=== PATIENT | female | born 1930 | race Caucasian/White ===

== ENCOUNTER 2017-03-29 19:44 | Inpatient (IN) | payer MEDICARE, BC ==
[~2017-03-29] VITALS: Ht 147.3 cm; Wt 54.9 kg
[2017-03-29 21:40] VITALS: BP 131/61
[2017-03-29] MEDS ORDERED: ACET325T9 PO (22:24)
[2017-03-29] MEDS ORDERED: CHOL10003 PO (22:25)
[2017-03-29] MEDS ORDERED: CRAN500C6 PO (22:26)
[2017-03-29] MEDS ORDERED: ESTR42.53 VG (22:27)
[2017-03-29] MEDS ORDERED: HYDR15CR20 TP (22:28)
[2017-03-29] MEDS ORDERED: LACT1CAP6 PO (22:29)
[2017-03-29] MEDS ORDERED: LEVO100T5 PO (22:30)
[2017-03-29] MEDS ORDERED: MAGN400O7 PO (22:30)
[2017-03-29] MEDS ORDERED: MEMA28CA PO (22:31)
[2017-03-29] MEDS ORDERED: NITR50CA11 PO (22:32)
[2017-03-29] MEDS ORDERED: POTA20TA82 PO (22:33)
[2017-03-29] MEDS ORDERED: VENL37.5 PO (22:34)
[2017-03-29] MEDS ORDERED: MORPHINE SULFATE 4 MG/ML DISP.SYRIN. IV PRN (22:45)
[2017-03-29 23:00] VITALS: BP 134/57
--- NOTE | 2017-03-29 23:14 | PDOC1 ---
History and Physical Date of Admission Date of Admission DATE: 03/29/17 TIME: 23:06 Identification/Chief Complaint Chief Complaint hip pain, s/p fall Problems: Source Source: Chart review, Patient History of Present Illness History of Present Illness pt fell today at assisted living, and was brought to [facility], Left leg guarding and in pain, unable to quanitfy, but left leg externally rotated to abnormal degree. pt unable to transfer, acute pain with movement Dementia is noted, pt unaware of year or location she is oriented to self. Her daughter came w. EMS from [place], and could provide consent, and assisted with history, she reported that the left femur was reported as "crushed" by the ER physician, and this was not relayed to me, I had the implication of a clean fracture. Past Medical History Cardiovascular: HTN CENTRAL NERVOUS SYSTEM: Dementia Psych: Depression Rheumatologic: No pertinent hx Infectious disease: No pertinent hx ENT: No pertinent hx Renal/: No pertinent hx Endocrine: Hypothyroidism Dermatology: No pertinent hx Past Surgical History Past Surgical History: No pertinent history Family History Family History: No Significant Social History Smoke: No ALCOHOL: none Drugs: None Current Medications Current Medications Current Medications Sodium Chloride 1,000 ml @ 75 mls/hr [id number] IV ; Start 03/29/17 at 22:45 Oxycodone/ Acetaminophen (Percocet 5/325) 1 tab PRN Q4HRS PRN PO PAIN; Start at 22:45 Morphine Sulfate 4 mg PRN Q2HR PRN IV PAIN; Start 03/29/17 at 22:45 Active Scripts Active Reported Effexor Xr (Venlafaxine Hcl) 37.5 Mg Cap.er.24h 1 Cap PO BID Potassium Chloride 20 Meq Tablet.er 20 Meq PO BID Macrodantin (Nitrofurantoin Macrocrystal) 50 Mg Capsule 1 Cap PO HS Namenda Xr (Memantine Hcl) 28 Mg Cap.spr.24 28 Mg PO DAILY Milk Of Magnesia (Magnesium Hydroxide) 400 Mg/5 Ml Oral.susp 400 Mg PO PRN Levothyroxine Sodium 100 Mcg Tablet 1 Tab PO DAILY Probiotic (Lactobacillus Acidophilus) 1 Each Capsule 1 Each PO TID Hydrocortisone Valerate 15 Gm Cream..g. TP BID Estrace (Estradiol) 42.5 Gm Cream.appl 1 Gm VG WEEKLY Cranberry (Cranberry Extract) 500 Mg Capsule 500 Mg PO DAILY Vitamin D3 (Cholecalciferol (Vitamin D3)) 1,000 Unit Tablet 1,000 Unit PO DAILY Tylenol (Acetaminophen) 325 Mg Tablet 1 Tab PO PRN Q4HRS Allergies Allergies: Uncoded Allergies: PCN (Allergy, Unknown, Unknown, 03/29/17) ROS Review of System unable to complete due to dementia, pt had been in normal state of health per family, no recent illness or change until fall today Physical Exam General: Alert, Cooperative, No acute distress, Other (disoriented, ) HEENT: Atraumatic, EOMI Lungs: Clear to auscultation Heart: no murmurs Abdomen: Normal bowel sounds, Soft Rectal Exam: not examined Extremities: No clubbing, Normal pulses, Other (externally rotated left leg to hip, patella nearly 90 degrees abducted) Skin: No significant lesion Neuro: Normal speech, Normal tone, Sensation intact Psych/Mental Status: Mood NL Vitals Vitals Vital Signs Date Time Temp Pulse Resp B/P (MAP) Pulse Ox O2 Delivery O2 Flow Rate FiO2 03/29/17 21:40 97.9 77 24 131/61 (84) 93 Nasal Cannula 2.0 97.9 VTE Prophylaxis Ordered VTE Prophylaxis Devices: Yes VTE Pharmacological Prophylaxi: Contraindicated Assessment/Plan Assessment/Plan admit for left hip fracture Xrays taken there, disk brought with family, will try to load for Ortho eval ortho eval for fixation or nail if possible check vit D level dementia, stable cont depression med on chronic potassium replacement, check labs in AM EVA ROSSI MD Mar 29, 2017 23:14
[2017-03-29] MEDS ORDERED: MAGNESIUM HYDROXIDE 2,400 MG/30 ML ORAL.SUSP. PO PRN (23:15)
[2017-03-29] MEDS ORDERED: ACETAMINOPHEN 325 MG TABLET. PO PRN (23:15)
[2017-03-29] MEDS: oxyCODONE/APAP 5/325 1 TAB TABLET PO PRN (23:35)
[2017-03-29] MEDS: VENLAFAXINE XR 37.5 MG CAP.ER.24H. PO SCH (23:53)
[2017-03-30] VITALS (9 sets, daily range): BP systolic 94–136; BP diastolic 48–71
[2017-03-30] MEDS: IV NORMAL SALINE 1000ML BAG 1,000 ML IV SCH ×2 (00:07→12:05)
[2017-03-30] MEDS ORDERED: PNEUMOCOCCAL VAX SCREEN BY RX. MC ONE (02:15)
--- NOTE | 2017-03-30 02:24 | ACF ---
Admission Forms Criteria MUSCULOSKELETAL DISEASE GRG Clinical Indications for Admission to Inpatient Care (Place 'X' for any and all applicable criteria): Hospital admission is needed for appropriate care of the patient because of 1 or more of the following: [X]I. Fracture, dislocation, or other musculoskeletal injury requiring inpatient care(medical) as indicated by 1 or more of the following(4)(5)(6)(7) [ ]a) Vertebral fracture requiring observation for instability or neurologic compromise (8) [ ]b) Compartment syndrome (proven or cannot be ruled out during observation level of care) (9) [ ]c) Limb-threatening injury [ ]d) Major injury requiring inpatient stabilization such as traction initiation or external fixation before internal fixation or closure of complex or open fracture [X]e) Major injury requiring inpatient treatment after emergency or observation level care (as appropriate) [ ]f) Severe pain requiring acute inpatient management [ ]g) Injury with suspicion of abuse or neglect (eg., child, dependent elderly) [ ]II. Newly diagnosed or suspected bone, joint, or orthopedic device infection (e.g., osteomyelitis, septic arthritis) needing 1 or more of the following(1)(2)(3) [ ]a) IV antibiotics that cannot be initiated in other than inpatient setting (e.g., patient too unstable or home infusion not available) [ ]b) Device removal or replacement [ ]c) Bone or soft tissue debridement [ ]d) Joint drainage (drain placement or repetitive aspirations) [ ]III. Severe rheumatologic disease (e.g., systemic lupus erythematosus, rheumatoid arthritis) with complications or comorbidities (Also use Optimal Recovery Care Criteria or General Recovery Criteria as appropriate on the basis of predominant condition), including 1 or more of the following( 10)(11)(12)(13) [ ]a) Severe infection (e.g., AEROPHYSICIST infection, sepsis) (14) [ ]b) Respiratory complications, including 1 or more of the following : [ ]i) Pleural effusion with respiratory compromise [ ]ii) Pulmonary hypertension with congestive failure [ ]iii) Respiratory failure [ ]iv) Pulmonary hemorrhage (15) [ ]c) Hematologic disease, including 1 or more of the following: [ ]i) Coagulopathy with bleeding [ ]ii) Thrombosis with hypercoagulable state [ ]iii) Thrombotic thrombocytopenic purpura [ ]d) Cerebritis with seizures, psychosis, or other severe abnormalities [ ]e) Vertebral destruction with monitoring needed for cervical myelopathy& possible respiratory compromise [ ]f) Exacerbation that requires inpatient treatment (e.g., intravenous immunosuppression) (16) [ ]g) Acute renal failure [ ]h) Cerebritis with seizures, psychosis, Altered mental status, or other neurologic abnormalities [ ]i) Pericardial effusion with tamponade [ ]j) Vertebral destruction, with monitoring needed for cervical myelopathy and possible respiratory compromise [ ]IV. Severe vasculitis with complications or comorbidities (Also use Optimal Recovery Care Criteria General Recovery Criteria as appropriate on the basis of predominant condition), including 1 or more of the following(11)(12)(17)(18)(19)(20) [ ]a) Exacerbation that requires inpatient treatment (e.g., intravenous immunosuppression) (19)(21) [ ]b) Pulmonary hemorrhage (15) [ ]c) AEROPHYSICIST vasculitis with seizures, psychosis, Altered mental status that is severe or persistent, or other severe abnormalities (22) [ ]d) Cerebral infarction [ ]e) Gastrointestinal ischemia [ ]f) Gangrene or threatened amputation [ ]g) Renal failure (16) [ ]h) Other significant complications of vasculitis ( eg., tissue or organ ischemia, organ dysfunction ) [ ]V. Severe myopathy as indicated by 1 or more of the following (28)(29) [ ]a) New onset of airway compromise or inability to swallow [ ]b) Respiratory deterioration with observation needed for impending respiratory failure [ ]c) Exacerbation that requires inpatient treatment (e.g., intravenous immunosuppression) [ ]. Severe crystal gout (arthropathy) indicated by 1 or more of the following (23)(24) [ ]a) Severe pain requiring acute inpatient management [ ]b) Exacerbation that requires inpatient treatment (e.g., intravenous treatment) [ ]VII.Rhabdomyolysis and 1 or more of the following (25)(26)(27) [ ]a) Acute renal failure [ ]b) Need for intravenous hydration after emergency or observation level care (as appropriate) [ ]c) Inability to maintain oral hydration [ ]d) Change in mental status [ ]e) Electrolyte abnormality that remains after emergency or observation level care (as appropriate) [ ]VIII Post amputation complication, as indicated by ANY ONE of the following [ ]a) Infection [ ]b) Dehiscence [ ]c) Myodesis failure [ ]IX. Severe pain requiring acute inpatient management due to musculoskeletal condition [ ]X. Musculoskeletal Disease and ALL of the following: [ ]a) Symptom or finding for which emergency and observation care have failed or are not considered appropriate (Use General Criteria: Observation Care as appropriate) [ ]b) Presence of ANY ONE of the following [ ]i) A General Admission Criteria [ ]ii) A Pediatric General Admission Criteria The original [facility] [employer] content created by [facility] has been revised. The portions of the content which have been revised are identified through the use of italic text or in bold, and [facility] has neither reviewed nor approved the modified material. All other unmodified content is copyright [facility]. Please see references footnoted in the original [facility] edition 2016 Admission Criteria Met?: Yes ASHLEE SANTIAGO Mar 30, 2017 02:24
[2017-03-30 04:15] LABS: BILIRUBIN,URINE NEGATIVE (NEG); GLUCOSE,URINE NEGATIVE (NEG); NITRITE,URINE NEGATIVE (NEG); PROTEIN,URINE NEGATIVE (NEG-TRACE); UROBILINOGEN,URINE 0.2 mg/dL (0.2 mg/dL)
[2017-03-30 04:19] LABS: BACTERIA,URINE 0 /HPF (0-FEW); RBC,URINE 0 /HPF (0-2); SQUAMOUS EPITHELIAL CELL,UR OCC /LPF; WBC,URINE OCC /HPF (0-4)
[2017-03-30 04:39] LABS: BASO # 0.1 x10^3/uL (0.0-0.2); BASO % 1 % (0-3); EOS % 0 % (0-3); HEMATOCRIT 33.7 % (36.0-47.0); HEMOGLOBIN 11.1 g/dL (12.0-15.5); LYMPH # 1.8 x10^3/uL (1.0-4.8); LYMPH % 15 % (24-48); MEAN CORPUSCULAR HEMOGLOBIN 32 pg (25-35); MEAN CORPUSCULAR HGB CONC 33 g/dL (31-37); MEAN CORPUSCULAR VOLUME 98 fL (79-100); MONO % 9 % (0-9); NEUT % 75 % (31-73); PLATELET COUNT 194 x10^3/uL (140-400); RED BLOOD COUNT 3.44 x10^6/uL (3.50-5.40); RED CELL DISTRIBUTION WIDTH 14.5 % (11.5-14.5); WHITE BLOOD COUNT 11.6 x10^3/uL (4.0-11.0)
[2017-03-30 04:47] LABS: INR 1.2 (0.8-1.1)
[2017-03-30 05:07] LABS: ALBUMIN 3.2 g/dL (3.4-5.0); CALCIUM 8.2 mg/dL (8.5-10.1); CREATININE 0.8 mg/dL (0.6-1.0); GFR 67.5; POTASSIUM 4.3 mmol/L (3.5-5.1); TOTAL BILIRUBIN 0.5 mg/dL (0.2-1.0); TOTAL PROTEIN 6.5 g/dL (6.4-8.2)
[2017-03-30] MEDS: LEVOTHYROXINE 100 MCG TABLET PO SCH (06:00)
[2017-03-30] MEDS: LACTOBACILLUS ACIDOPH & BULGAR 1 TABLET. PO SCH ×3 (07:40→20:56)
[2017-03-30] MEDS: POTASSIUM CHLORIDE 20 MEQ TABLET.ER. PO SCH ×2 (07:40→17:10)
[2017-03-30] MEDS: MEMANTINE 10 MG TABLET. PO SCH ×2 (07:40→20:56)
[2017-03-30] MEDS: VENLAFAXINE XR 37.5 MG CAP.ER.24H. PO SCH ×2 (07:40→20:56)
[2017-03-30] MEDS ORDERED: fentaNYL PF VIAL 100 MCG/2 ML VIAL IV PRN ×2 (08:45)
[2017-03-30] MEDS ORDERED: MORPHINE SULFATE 2 MG/ML DISP.SYRIN. IV PRN ×2 (08:45→15:45)
[2017-03-30] MEDS ORDERED: ONDANSETRON PF 4 MG/2 ML VIAL. IV PRN ×2 (08:45→15:45)
[2017-03-30] MEDS ORDERED: PROCHLORPERAZINE 10 MG/2 ML VIAL. IV PRN (08:45)
[2017-03-30] MEDS ORDERED: LIDOCAINE 1% 1 ML SYRINGE. ID PRN (08:45)
[2017-03-30] MEDS ORDERED: HYDROmorphone 2 MG/ML VIAL IV PRN (08:45)
[2017-03-30] MEDS ORDERED: fentaNYL PF VIAL 100 MCG/2 ML VIAL ONE (12:51)
[2017-03-30] MEDS ORDERED: PROPOFOL 20 ML IV ONE (12:54)
[2017-03-30] MEDS ORDERED: LIDOCAINE 2% PF Vial for OR 5 ML VIAL. ONE (12:54)
[2017-03-30] MEDS ORDERED: ONDANSETRON PF 4 MG/2 ML VIAL. ONE (12:54)
[2017-03-30] MEDS ORDERED: FAMOTIDINE 20 MG/2 ML VIAL ONE (12:54)
--- NOTE | 2017-03-30 13:08 | PDOC ---
PROGRESS NOTES Chief Complaint Chief Complaint Hip pain, s/p fall PMH -HTN -Dementia -Depression -Hypothyroidism History of Present Illness History of Present Illness Resting with NAD Family present Pt is comfortable Vitals Vitals Vital Signs Date Time Temp Pulse Resp B/P (MAP) Pulse Ox O2 Delivery O2 Flow Rate FiO2 03/30/17 10:49 99.3 74 22 124/63 (83) 93 Nasal Cannula 2.0 99.3 Physical Exam General: Cooperative, No acute distress, Other (disoriented, ) Heart: Regular rate, No murmurs Lungs: Clear, Other (No RRW) Abdomen: Normal bowel sounds, Soft Extremities: No clubbing, Normal pulses, Other (externally rotated left leg to hip, patella nearly 90 degrees abducted) Skin: No rashes, No significant lesion Labs LABS Laboratory Tests Test 03/30/17 04:00 03/30/17 04:20 Urine Collection Type Unknown Urine Color Yellow Urine Clarity Clear Urine pH 5.0 Urine Specific [place] >=1.030 Urine Protein Negative mg/dL (NEG-TRACE) Urine Glucose (UA) Negative mg/dL (NEG) Urine Ketones (Stick) Negative mg/dL (NEG) Urine Blood Negative (NEG) Urine Nitrite Negative (NEG) Urine Bilirubin Negative (NEG) Urine Urobilinogen Dipstick 0.2 mg/dL (0.2 mg/dL) Urine Leukocyte Esterase Negative (NEG) Urine RBC 0 /HPF (0-2) Urine WBC Occ /HPF (0-4) Urine Squamous Epithelial Cells Occ /LPF Urine Bacteria 0 /HPF (0-FEW) Urine Mucus Mod /LPF White Blood Count 11.6 x10^3/uL (4.0-11.0) Red Blood Count 3.44 x10^6/uL (3.50-5.40) Hemoglobin 11.1 g/dL (12.0-15.5) Hematocrit 33.7 % (36.0-47.0) Mean Corpuscular Volume 98 fL (79-100) Mean Corpuscular Hemoglobin 32 pg (25-35) Mean Corpuscular Hemoglobin Concent 33 g/dL (31-37) Red Cell Distribution Width 14.5 % (11.5-14.5) Platelet Count 194 x10^3/uL (140-400) Neutrophils (%) (Auto) 75 % (31-73) Lymphocytes (%) (Auto) 15 % (24-48) Monocytes (%) (Auto) 9 % (0-9) Eosinophils (%) (Auto) 0 % (0-3) Basophils (%) (Auto) 1 % (0-3) Neutrophils # (Auto) 8.7 x10^3uL (1.8-7.7) Lymphocytes # (Auto) 1.8 x10^3/uL (1.0-4.8) Monocytes # (Auto) 1.1 x10^3/uL (0.0-1.1) Eosinophils # (Auto) 0.0 x10^3/uL (0.0-0.7) Basophils # (Auto) 0.1 x10^3/uL (0.0-0.2) Prothrombin Time 14.0 SEC (11.7-14.0) Prothromb Time International Ratio 1.2 (0.8-1.1) Sodium Level 144 mmol/L (136-145) Potassium Level 4.3 mmol/L (3.5-5.1) Chloride Level 110 mmol/L (98-107) Carbon Dioxide Level 26 mmol/L (21-32) Anion Gap 8 (6-14) Blood Urea Nitrogen 30 mg/dL (7-20) Creatinine 0.8 mg/dL (0.6-1.0) Estimated GFR (Cockcroft-Gault) 67.5 BUN/Creatinine Ratio 38 (6-20) Glucose Level 135 mg/dL (70-99) Calcium Level 8.2 mg/dL (8.5-10.1) Total Bilirubin 0.5 mg/dL (0.2-1.0) Aspartate Amino Transf (AST/SGOT) 19 U/L (15-37) Alanine Aminotransferase (ALT/SGPT) 19 U/L (14-59) Alkaline Phosphatase 91 U/L (46-116) Total Protein 6.5 g/dL (6.4-8.2) Albumin 3.2 g/dL (3.4-5.0) Albumin/Globulin Ratio 1.0 (1.0-1.7) Review of Systems Review of Systems Weakness Complains of hip pain Assessment and Plan Assessmemt and Plan Hip pain, s/p fall PMH -HTN -Dementia -Depression -Hypothyroidism Plan -Awaiting surgery -Continue pain management -Consult Ortho -PT/OT post-op -FU tomorrow (03/31/17) Problems: Comment Review of Relevant I have reviewed the following items ramy (where applicable) has been applied. Labs Laboratory Tests Test 03/30/17 04:00 03/30/17 04:20 Urine Collection Type Unknown Urine Color Yellow Urine Clarity Clear Urine pH 5.0 Urine Specific [place] >=1.030 Urine Protein Negative mg/dL (NEG-TRACE) Urine Glucose (UA) Negative mg/dL (NEG) Urine Ketones (Stick) Negative mg/dL (NEG) Urine Blood Negative (NEG) Urine Nitrite Negative (NEG) Urine Bilirubin Negative (NEG) Urine Urobilinogen Dipstick 0.2 mg/dL (0.2 mg/dL) Urine Leukocyte Esterase Negative (NEG) Urine RBC 0 /HPF (0-2) Urine WBC Occ /HPF (0-4) Urine Squamous Epithelial Cells Occ /LPF Urine Bacteria 0 /HPF (0-FEW) Urine Mucus Mod /LPF White Blood Count 11.6 x10^3/uL (4.0-11.0) Red Blood Count 3.44 x10^6/uL (3.50-5.40) Hemoglobin 11.1 g/dL (12.0-15.5) Hematocrit 33.7 % (36.0-47.0) Mean Corpuscular Volume 98 fL (79-100) Mean Corpuscular Hemoglobin 32 pg (25-35) Mean Corpuscular Hemoglobin Concent 33 g/dL (31-37) Red Cell Distribution Width 14.5 % (11.5-14.5) Platelet Count 194 x10^3/uL (140-400) Neutrophils (%) (Auto) 75 % (31-73) Lymphocytes (%) (Auto) 15 % (24-48) Monocytes (%) (Auto) 9 % (0-9) Eosinophils (%) (Auto) 0 % (0-3) Basophils (%) (Auto) 1 % (0-3) Neutrophils # (Auto) 8.7 x10^3uL (1.8-7.7) Lymphocytes # (Auto) 1.8 x10^3/uL (1.0-4.8) Monocytes # (Auto) 1.1 x10^3/uL (0.0-1.1) Eosinophils # (Auto) 0.0 x10^3/uL (0.0-0.7) Basophils # (Auto) 0.1 x10^3/uL (0.0-0.2) Prothrombin Time 14.0 SEC (11.7-14.0) Prothromb Time International Ratio 1.2 (0.8-1.1) Sodium Level 144 mmol/L (136-145) Potassium Level 4.3 mmol/L (3.5-5.1) Chloride Level 110 mmol/L (98-107) Carbon Dioxide Level 26 mmol/L (21-32) Anion Gap 8 (6-14) Blood Urea Nitrogen 30 mg/dL (7-20) Creatinine 0.8 mg/dL (0.6-1.0) Estimated GFR (Cockcroft-Gault) 67.5 BUN/Creatinine Ratio 38 (6-20) Glucose Level 135 mg/dL (70-99) Calcium Level 8.2 mg/dL (8.5-10.1) Total Bilirubin 0.5 mg/dL (0.2-1.0) Aspartate Amino Transf (AST/SGOT) 19 U/L (15-37) Alanine Aminotransferase (ALT/SGPT) 19 U/L (14-59) Alkaline Phosphatase 91 U/L (46-116) Total Protein 6.5 g/dL (6.4-8.2) Albumin 3.2 g/dL (3.4-5.0) Albumin/Globulin Ratio 1.0 (1.0-1.7) Laboratory Tests Test 03/30/17 04:00 03/30/17 04:20 Urine Collection Type Unknown Urine Color Yellow Urine Clarity Clear Urine pH 5.0 Urine Specific [place] >=1.030 Urine Protein Negative mg/dL (NEG-TRACE) Urine Glucose (UA) Negative mg/dL (NEG) Urine Ketones (Stick) Negative mg/dL (NEG) Urine Blood Negative (NEG) Urine Nitrite Negative (NEG) Urine Bilirubin Negative (NEG) Urine Urobilinogen Dipstick 0.2 mg/dL (0.2 mg/dL) Urine Leukocyte Esterase Negative (NEG) Urine RBC 0 /HPF (0-2) Urine WBC Occ /HPF (0-4) Urine Squamous Epithelial Cells Occ /LPF Urine Bacteria 0 /HPF (0-FEW) Urine Mucus Mod /LPF White Blood Count 11.6 x10^3/uL (4.0-11.0) Red Blood Count 3.44 x10^6/uL (3.50-5.40) Hemoglobin 11.1 g/dL (12.0-15.5) Hematocrit 33.7 % (36.0-47.0) Mean Corpuscular Volume 98 fL (79-100) Mean Corpuscular Hemoglobin 32 pg (25-35) Mean Corpuscular Hemoglobin Concent 33 g/dL (31-37) Red Cell Distribution Width 14.5 % (11.5-14.5) Platelet Count 194 x10^3/uL (140-400) Neutrophils (%) (Auto) 75 % (31-73) Lymphocytes (%) (Auto) 15 % (24-48) Monocytes (%) (Auto) 9 % (0-9) Eosinophils (%) (Auto) 0 % (0-3) Basophils (%) (Auto) 1 % (0-3) Neutrophils # (Auto) 8.7 x10^3uL (1.8-7.7) Lymphocytes # (Auto) 1.8 x10^3/uL (1.0-4.8) Monocytes # (Auto) 1.1 x10^3/uL (0.0-1.1) Eosinophils # (Auto) 0.0 x10^3/uL (0.0-0.7) Basophils # (Auto) 0.1 x10^3/uL (0.0-0.2) Prothrombin Time 14.0 SEC (11.7-14.0) Prothromb Time International Ratio 1.2 (0.8-1.1) Sodium Level 144 mmol/L (136-145) Potassium Level 4.3 mmol/L (3.5-5.1) Chloride Level 110 mmol/L (98-107) Carbon Dioxide Level 26 mmol/L (21-32) Anion Gap 8 (6-14) Blood Urea Nitrogen 30 mg/dL (7-20) Creatinine 0.8 mg/dL (0.6-1.0) Estimated GFR (Cockcroft-Gault) 67.5 BUN/Creatinine Ratio 38 (6-20) Glucose Level 135 mg/dL (70-99) Calcium Level 8.2 mg/dL (8.5-10.1) Total Bilirubin 0.5 mg/dL (0.2-1.0) Aspartate Amino Transf (AST/SGOT) 19 U/L (15-37) Alanine Aminotransferase (ALT/SGPT) 19 U/L (14-59) Alkaline Phosphatase 91 U/L (46-116) Total Protein 6.5 g/dL (6.4-8.2) Albumin 3.2 g/dL (3.4-5.0) Albumin/Globulin Ratio 1.0 (1.0-1.7) Medications Current Medications Sodium Chloride 1,000 ml @ 75 mls/hr [id number] IV Last administered on 00:07; Start 03/29/17 at 22:45 Oxycodone/ Acetaminophen (Percocet 5/325) 1 tab PRN Q4HRS PRN PO PAIN Last administered on 03/29/17 23:35; Start 03/29/17 at 22:45 Morphine Sulfate 4 mg PRN Q2HR PRN IV PAIN Last administered on 03/30/17 07:29 ; Start 03/29/17 at 22:45 Acetaminophen (Tylenol) 325 mg PRN Q4HRS PRN PO PAIN/TEMP; Start 03/29/17 at 23 :15 Estradiol (Estrace) 1 [place] WEEKLY VG ; Start 04/05/17 at 09:00 Levothyroxine Sodium (Synthroid) 100 mcg DAILY06 PO ; Start 03/30/17 at 06:00 Magnesium Hydroxide (Milk Of Magnesia) 400 mg DAILY PRN PO CONSTIPATION; Start 03/29/17 at 23:15 Venlafaxine HCl (Effexor Xr) 37.5 mg BID PO Last administered on 03/29/17 23: 53; Start 03/29/17 at 23:45 Lactobacillus Acidophilus (Bacid, Maddison-Bid) 1 tab TID PO ; Start 03/30/17 at 09: 00 Memantine (Namenda) 10 mg BID PO ; Start 03/30/17 at 09:00 Potassium Chloride (Klor-Con) 20 meq BIDWMEALS PO ; Start 03/30/17 at 08:00 Pneumococcal Polyvalent Vaccine (Do NOT chart on this placeholder) 1 each 1X ONCE MC ; Start 03/30/17 at 02:15; Stop 03/30/17 at 02:16; Status UNV Ondansetron HCl (Zofran) 4 mg PRN Q6HRS PRN IV NAUSEA/VOMITING; Start 03/30/17 at 08:45; Stop 03/31/17 at 08:44 Fentanyl Citrate (Fentanyl 2ml Vial) 25 mcg PRN Q5MIN PRN IV MILD PAIN; Start 03/30/17 at 08:45; Stop 03/31/17 at 08:44 Fentanyl Citrate (Fentanyl 2ml Vial) 50 mcg PRN Q5MIN PRN IV MODERATE PAIN; Start 03/30/17 at 08:45; Stop 03/31/17 at 08:44 Morphine Sulfate 1 mg PRN Q10MIN PRN IV SEVERE PAIN; Start 03/30/17 at 08:45; Stop 03/31/17 at 08:44 Ringer's Solution 1,000 ml @ 30 mls/hr Q24H IV ; Start 03/30/17 at 08:41; Stop 03/30/17 at 20:40 Lidocaine HCl 2 ml PRN 1X PRN ID PRIOR TO IV START; Start 03/30/17 at 08:45; Stop 03/31/17 at 08:44 Hydromorphone HCl (Dilaudid) 0.5 mg PRN Q10MIN PRN IV SEV PAIN, Second choice; Start 03/30/17 at 08:45; Stop 03/31/17 at 08:44 Prochlorperazine Edisylate (Compazine) 5 mg PACU PRN PRN IV NAUSEA, MRX1; Start 03/30/17 at 08:45; Stop 03/31/17 at 08:44 Fentanyl Citrate (Fentanyl 2ml Vial) 100 mcg STK-MED ONCE .ROUTE ; Start at 12:51; Stop 03/30/17 at 12:52; Status DC Famotidine (Pepcid) 20 mg STK-MED ONCE .ROUTE ; Start 03/30/17 at 12:54; Stop at 12:55; Status DC Lidocaine HCl (Lidocaine Pf 2% Vial) 5 ml STK-MED ONCE .ROUTE ; Start 03/30/17 at 12:54; Stop 03/30/17 at 12:55; Status DC Ondansetron HCl (Zofran) 4 mg STK-MED ONCE .ROUTE ; Start 03/30/17 at 12:54; Stop 03/30/17 at 12:55; Status DC Propofol 20 ml @ As Directed STK-MED ONCE IV ; Start 03/30/17 at 12:54; Stop at 12:55; Status DC Active Scripts Active Reported Effexor Xr (Venlafaxine Hcl) 37.5 Mg Cap.er.24h 1 Cap PO BID Potassium Chloride 20 Meq Tablet.er 20 Meq PO BID Macrodantin (Nitrofurantoin Macrocrystal) 50 Mg Capsule 1 Cap PO HS Namenda Xr (Memantine Hcl) 28 Mg Cap.spr.24 28 Mg PO DAILY Milk Of Magnesia (Magnesium Hydroxide) 400 Mg/5 Ml Oral.susp 400 Mg PO PRN Levothyroxine Sodium 100 Mcg Tablet 1 Tab PO DAILY Probiotic (Lactobacillus Acidophilus) 1 Each Capsule 1 Each PO TID Hydrocortisone Valerate 15 Gm Cream..g. TP BID Estrace (Estradiol) 42.5 Gm Cream.appl 1 Gm VG WEEKLY Cranberry (Cranberry Extract) 500 Mg Capsule 500 Mg PO DAILY Vitamin D3 (Cholecalciferol (Vitamin D3)) 1,000 Unit Tablet 1,000 Unit PO DAILY Tylenol (Acetaminophen) 325 Mg Tablet 1 Tab PO PRN Q4HRS Vitals/I & O Vital Sign - Last 24 Hours 03/29/17 03/29/17 03/29/17 03/29/17 21:40 21:40 23:00 23:35 Temp 97.9 97.7 97.9 97.7 Pulse 77 89 Resp 24 24 B/P (MAP) 131/61 (84) 134/57 (82) Pulse Ox 93 95 93 O2 Delivery Nasal Cannula Nasal Cannula Nasal Cannula O2 Flow Rate 2.0 2.0 2.0 2.0 03/30/17 03/30/17 03/30/17 03/30/17 00:35 03:00 07:29 07:41 Temp 98.2 98.6 98.2 98.6 Pulse 79 76 Resp 22 18 22 B/P (MAP) 136/71 (92) 105/50 (68) Pulse Ox 95 95 95 O2 Delivery Nasal Cannula Nasal Cannula Nasal Cannula Room Air O2 Flow Rate 2.0 2.0 2.0 03/30/17 10:49 Temp 99.3 99.3 Pulse 74 Resp 22 B/P (MAP) 124/63 (83) Pulse Ox 93 O2 Delivery Nasal Cannula O2 Flow Rate 2.0 Intake and Output 03/29/17 03/29/17 03/30/17 15:00 23:00 07:00 Intake Total 100 ml Output Total 140 ml Balance 100 ml -140 ml KATHERINE PORRAS III DO Mar 30, 2017 13:08
[2017-03-30] MEDS: IV RINGERS,LACTATED 1000ML 1,000 ML IV SCH ×2 (13:20→15:22)
[2017-03-30] MEDS ORDERED: DEXAMETHASONE SOD PHOS 20 MG/5 ML VIAL. ONE (14:21)
[2017-03-30] MEDS ORDERED: PHENYLEPHRINE 10 MG/ML VIAL. ONE (14:21)
[2017-03-30] MEDS ORDERED: 0.9 % SODIUM CHLORIDE 50 ML VIAL. IJ ONE (14:21)
[2017-03-30] MEDS ORDERED: SEVOFLURANE 61 TO 120 MINUTES. IH ONE ×2 (14:21→14:42)
[2017-03-30] MEDS ORDERED: CLINDAMYCIN 600MG PREMIX 50 ML IV ONE (14:30)
--- NOTE | 2017-03-30 15:35 | PDOC4 ---
Operative Note Operative Note Date 03/30/2017 Pre-and postoperative diagnosis displaced intertrochanteric left hip fracture Procedure operative reduction internal fixation left intertrochanteric hip fracture with InterTAN intramedullary nail Surgeon Chelle Wakefield endotracheal Estimated blood loss 100 mL Complications none Operative indications: Patient is an 87-year-old female that had a fall in assisted living and was admitted yesterday evening after initial evaluation at [facility] with an intertrochanteric hip fracture. She underwent medical evaluation last night and I talked to her daughter who is power of security assurance specialist as well as son-in-law about the findings and possible treatments of the hip fracture including nonoperative treatment with immobility related complications and suggested operative treatment and stabilization to allow her mobilization with the possibility of infection nerve root blood vessel damage medical or other anesthetic complications including nonhealing among others. All her questions were answered consent was obtained and family agrees to proceed with operative evaluation and treatment Operative text: Patient was identified procedure verified. After adequate amounts of general endotracheal anesthesia were administered, the patient was placed on the Nida fracture table left lower extremity was placed in traction and the right leg placed in a leg parker all bony prominences were well-padded. After timeout was performed patient procedure identified and verified traction was placed in the left leg was manipulated to obtain adequate reduction under fluoroscopic guidance and the left hip was prepped and draped in standard sterile fashion. Procedure was again verified and incision was made just proximal to the greater trochanter and and entry awl was made to advance a long guidewire down the center of the femur entry drill bit was used and reaming carried out up to a size 13. An 11 one half 130 InterTAN nail was then placed a guidewire was placed up the center of the femoral neck under fluoroscopic guidance and drilling was carried out for the lag and compression screws. Measurement carried out and a size 90 mm and a size 80 mm lag screw was used to achieve adequate compression. Excellent compression was obtained and rotation well-controlled. Fracture appeared to be stably fixated under multiple fluoroscopic views with excellent positioning of the lag screw in the center of the femoral head. Distal locking screw was placed to prevent any rotation and again all hardware placement and reduction was checked under multiple fluoroscopic views thorough irrigation carried out normal saline solution fascia was closed with #1 Vicryl suture subcutaneous closure with buried Vicryl skin closure with yobani sterile dressings were applied patient was extirpated transferred to postop holding in stable condition having tolerated the procedure well DARINEL WU MD Mar 30, 2017 15:35
[2017-03-30] MEDS ORDERED: MORPHINE SULFATE 4 MG/ML DISP.SYRIN. IV PRN (15:45)
[2017-03-30] MEDS ORDERED: HYDROcodone/APAP 7.5/325MG 1 TAB TABLET PO PRN (15:45)
[2017-03-30] MEDS ORDERED: DEXTROSE 50% 25 GM / 50ML DISP.SYRIN. IV PRN (15:45)
[2017-03-30] MEDS ORDERED: POLYETHYLENE GLYCOL 3350 17 GM PACKET. PO PRN (15:45)
[2017-03-30] MEDS ORDERED: oxyCODONE IR 5 MG TABLET PO PRN (15:45)
[2017-03-30] MEDS ORDERED: WARFARIN 7.5 MG TABLET. PO ONE (16:00)
[2017-03-30] MEDS: SENNOSIDES/DOCUSATE 8.6/50MG TABLET. PO SCH (17:10)
[2017-03-30] MEDS: CLINDAMYCIN 600MG PREMIX 50 ML IV SCH (18:07)
[2017-03-30] MEDS: oxyCODONE/APAP 5/325 1 TAB TABLET PO PRN (20:57)
[2017-03-31] MEDS: IV NORMAL SALINE 1000ML BAG 1,000 ML IV SCH ×2 (01:25→14:07)
[2017-03-31] MEDS: CLINDAMYCIN 600MG PREMIX 50 ML IV SCH ×2 (01:37→10:46)
[2017-03-31 03:00] VITALS: BP 94/50
--- NOTE | 2017-03-31 04:03 | CONS ---
DATE OF CONSULTATION: 03/30/2017 REQUESTING PHYSICIAN: Dr. Annette Gallegos. REASON FOR CONSULTATION: Left hip fracture. HISTORY OF PRESENT ILLNESS: The patient is an 87-year-old female that is in assisted living, has some mild dementia, unable to bear weight on her left leg and has pain with any hip motion. She was originally brought to [facility] and transferred to [place] for further care. She is accompanied by her daughter and son-in-law. PAST MEDICAL HISTORY: Significant for dementia, hypertension and depression as well as hypothyroidism. PAST SURGICAL HISTORY: Significant for ORIF of a right hip fracture several years ago at [facility] in [place]. FAMILY HISTORY: She denies any significant family history. SOCIAL HISTORY: She is now out in this area to be near to her family and is in an assisted living facility. Denies smoking, alcohol or drug use. MEDICATIONS: List is reviewed. ALLERGIES: INCLUDE PENICILLIN. REVIEW OF SYSTEMS: Really unobtainable due to her mental status. She is alert to self, not really place or time, was previously ambulatory with a walker until the fall and otherwise in a normal state of health according to her family members. PHYSICAL EXAMINATION: GENERAL: This is a pleasant, cooperative 87-year-old female, afebrile, alert, oriented only to self. HEENT: Atraumatic, normocephalic. EXTREMITIES: Moving upper extremities spontaneously. Left hip is shortened, externally rotated and has pain with any range of motion. She has normal alignment, stability of the right hip that has a well-healed incision from previous fixation of the hip fracture as well as good alignment of bilateral knees and ankles. IMAGING: X-rays of the left hip show a displaced, comminuted intertrochanteric left hip fracture. IMPRESSION: Left intertrochanteric hip fracture. TREATMENT PLAN: I talked with the patient, but really more her family and specifically her daughter, who is the power of trade mark attorney about the treatment options, risks, benefits, postoperative course of the usual hip fixation, the less desirable nonoperative treatment options due to immobility related complications. We talked about the possible complications of surgical treatment of medical or other anesthetic complications, bleeding, infection, possible nonhealing, nerve or blood vessel damage among others. All their questions were answered. Consent was obtained and the daughter, power of trade mark attorney agrees to proceed with surgical evaluation and treatment, which will be planned today. DARINEL WU MD DR: SARY/iban JOB#: [id number] / [id number]
[2017-03-31] MEDS ORDERED: MAGNESIUM HYDROXIDE 2,400 MG/30 ML ORAL.SUSP. PO PRN (06:00)
[2017-03-31] MEDS: LEVOTHYROXINE 100 MCG TABLET PO SCH (06:32)
[2017-03-31 07:00] VITALS: BP 101/46
[2017-03-31] MEDS ORDERED: ALBUTEROL SULFATE 2.5 MG/3 ML NEBU. NEB PRN (08:45)
[2017-03-31] MEDS: VENLAFAXINE XR 37.5 MG CAP.ER.24H. PO SCH ×2 (10:47→21:12)
[2017-03-31] MEDS: POTASSIUM CHLORIDE 20 MEQ TABLET.ER. PO SCH ×2 (10:47→17:03)
[2017-03-31] MEDS: oxyCODONE/APAP 5/325 1 TAB TABLET PO PRN ×2 (10:48→19:42)
[2017-03-31] MEDS: MEMANTINE 10 MG TABLET. PO SCH ×2 (10:48→21:12)
[2017-03-31] MEDS: SENNOSIDES/DOCUSATE 8.6/50MG TABLET. PO SCH (10:49)
[2017-03-31] MEDS: LACTOBACILLUS ACIDOPH & BULGAR 1 TABLET. PO SCH ×3 (10:49→21:12)
[2017-03-31] MEDS: fentaNYL PF VIAL 100 MCG/2 ML VIAL IV PRN ×2 (10:50→21:14)
[2017-03-31 11:00] VITALS: BP 108/34
--- NOTE | 2017-03-31 11:01 | PDOC ---
PROGRESS NOTES Chief Complaint Chief Complaint left hip fx s/p sx (03/30) POD # 1 Assisted LIving resident Dementia, mild vs cognitive impairment HArd of hearing Fevers POD #1, likely atelectasis PMH -HTN -Dementia -Depression -Hypothyroidism History of Present Illness History of Present Illness Up in chair after PT worked with her today, very minimal pain Tmax 100 NO cough UA is clean Dw family at beside- IS at least 10x- NO spirometry at bedside LAbs: WBC 11, hgb 11 - expected IF fevers persist then will further investigate, cxr etc HOld off antibiotics for now Dw RN Gisela Moody consult [facility]- lives in [place] Vitals Vitals Vital Signs Date Time Temp Pulse Resp B/P (MAP) Pulse Ox O2 Delivery O2 Flow Rate FiO2 03/31/17 10:50 18 Nasal Cannula 2.0 03/31/17 07:00 98.1 88 101/46 (64) 96 98.1 Physical Exam General: Cooperative, No acute distress, Other (disoriented, ) Heart: Regular rate, No murmurs Lungs: Clear, Other (No RRW) Abdomen: Normal bowel sounds, Soft Extremities: No clubbing, Normal pulses, Other (externally rotated left leg to hip, patella nearly 90 degrees abducted) Skin: No rashes, No significant lesion Review of Systems Review of Systems denies 14 pt - has dementia/cognitive impairment Comment Review of Relevant I have reviewed the following items ramy (where applicable) has been applied. Labs Laboratory Tests Test 03/30/17 04:00 03/30/17 04:20 Urine Collection Type Unknown Urine Color Yellow Urine Clarity Clear Urine pH 5.0 Urine Specific [place] >=1.030 Urine Protein Negative mg/dL (NEG-TRACE) Urine Glucose (UA) Negative mg/dL (NEG) Urine Ketones (Stick) Negative mg/dL (NEG) Urine Blood Negative (NEG) Urine Nitrite Negative (NEG) Urine Bilirubin Negative (NEG) Urine Urobilinogen Dipstick 0.2 mg/dL (0.2 mg/dL) Urine Leukocyte Esterase Negative (NEG) Urine RBC 0 /HPF (0-2) Urine WBC Occ /HPF (0-4) Urine Squamous Epithelial Cells Occ /LPF Urine Bacteria 0 /HPF (0-FEW) Urine Mucus Mod /LPF Nasal Screen MRSA (PCR) Negative (Negative) White Blood Count 11.6 x10^3/uL (4.0-11.0) Red Blood Count 3.44 x10^6/uL (3.50-5.40) Hemoglobin 11.1 g/dL (12.0-15.5) Hematocrit 33.7 % (36.0-47.0) Mean Corpuscular Volume 98 fL (79-100) Mean Corpuscular Hemoglobin 32 pg (25-35) Mean Corpuscular Hemoglobin Concent 33 g/dL (31-37) Red Cell Distribution Width 14.5 % (11.5-14.5) Platelet Count 194 x10^3/uL (140-400) Neutrophils (%) (Auto) 75 % (31-73) Lymphocytes (%) (Auto) 15 % (24-48) Monocytes (%) (Auto) 9 % (0-9) Eosinophils (%) (Auto) 0 % (0-3) Basophils (%) (Auto) 1 % (0-3) Neutrophils # (Auto) 8.7 x10^3uL (1.8-7.7) Lymphocytes # (Auto) 1.8 x10^3/uL (1.0-4.8) Monocytes # (Auto) 1.1 x10^3/uL (0.0-1.1) Eosinophils # (Auto) 0.0 x10^3/uL (0.0-0.7) Basophils # (Auto) 0.1 x10^3/uL (0.0-0.2) Prothrombin Time 14.0 SEC (11.7-14.0) Prothromb Time International Ratio 1.2 (0.8-1.1) Sodium Level 144 mmol/L (136-145) Potassium Level 4.3 mmol/L (3.5-5.1) Chloride Level 110 mmol/L (98-107) Carbon Dioxide Level 26 mmol/L (21-32) Anion Gap 8 (6-14) Blood Urea Nitrogen 30 mg/dL (7-20) Creatinine 0.8 mg/dL (0.6-1.0) Estimated GFR (Cockcroft-Gault) 67.5 BUN/Creatinine Ratio 38 (6-20) Glucose Level 135 mg/dL (70-99) Calcium Level 8.2 mg/dL (8.5-10.1) Total Bilirubin 0.5 mg/dL (0.2-1.0) Aspartate Amino Transf (AST/SGOT) 19 U/L (15-37) Alanine Aminotransferase (ALT/SGPT) 19 U/L (14-59) Alkaline Phosphatase 91 U/L (46-116) Total Protein 6.5 g/dL (6.4-8.2) Albumin 3.2 g/dL (3.4-5.0) Albumin/Globulin Ratio 1.0 (1.0-1.7) Medications Current Medications Sodium Chloride 1,000 ml @ 75 mls/hr [id number] IV Last administered on 12:05; Start 03/29/17 at 22:45 Oxycodone/ Acetaminophen (Percocet 5/325) 1 tab PRN Q4HRS PRN PO PAIN Last administered on 03/31/17 10:48; Start 03/29/17 at 22:45 Morphine Sulfate 4 mg PRN Q2HR PRN IV PAIN Last administered on 03/30/17 07:29 ; Start 03/29/17 at 22:45 Acetaminophen (Tylenol) 325 mg PRN Q4HRS PRN PO PAIN/TEMP; Start 03/29/17 at 23 :15 Estradiol (Estrace) 1 [place] WEEKLY VG ; Start 04/05/17 at 09:00 Levothyroxine Sodium (Synthroid) 100 mcg DAILY06 PO Last administered on 06:32; Start 03/30/17 at 06:00 Magnesium Hydroxide (Milk Of Magnesia) 400 mg DAILY PRN PO CONSTIPATION; Start 03/29/17 at 23:15 Venlafaxine HCl (Effexor Xr) 37.5 mg BID PO Last administered on 03/31/17 10: 47; Start 03/29/17 at 23:45 Lactobacillus Acidophilus (Bacid, Maddison-Bid) 1 tab TID PO Last administered on 10:49; Start 03/30/17 at 09:00 Memantine (Namenda) 10 mg BID PO Last administered on 03/31/17 10:48; Start at 09:00 Potassium Chloride (Klor-Con) 20 meq BIDWMEALS PO Last administered on 10:47; Start 03/30/17 at 08:00 Pneumococcal Polyvalent Vaccine (Do NOT chart on this placeholder) 1 each 1X ONCE MC ; Start 03/30/17 at 02:15; Stop 03/30/17 at 02:16; Status UNV Ondansetron HCl (Zofran) 4 mg PRN Q6HRS PRN IV NAUSEA/VOMITING; Start 03/30/17 at 08:45; Stop 03/31/17 at 08:44; Status DC Fentanyl Citrate (Fentanyl 2ml Vial) 25 mcg PRN Q5MIN PRN IV MILD PAIN; Start 03/30/17 at 08:45; Stop 03/31/17 at 08:44; Status DC Fentanyl Citrate (Fentanyl 2ml Vial) 50 mcg PRN Q5MIN PRN IV MODERATE PAIN; Start 03/30/17 at 08:45; Stop 03/31/17 at 08:44; Status DC Morphine Sulfate 1 mg PRN Q10MIN PRN IV SEVERE PAIN; Start 03/30/17 at 08:45; Stop 03/31/17 at 08:44; Status DC Ringer's Solution 1,000 ml @ 30 mls/hr Q24H IV Last administered on 03/30/17t 15:22; Start 03/30/17 at 08:41; Stop 03/30/17 at 20:40; Status DC Lidocaine HCl 2 ml PRN 1X PRN ID PRIOR TO IV START; Start 03/30/17 at 08:45; Stop 03/31/17 at 08:44; Status DC Hydromorphone HCl (Dilaudid) 0.5 mg PRN Q10MIN PRN IV SEV PAIN, Second choice; Start 03/30/17 at 08:45; Stop 03/31/17 at 08:44; Status DC Prochlorperazine Edisylate (Compazine) 5 mg PACU PRN PRN IV NAUSEA, MRX1; Start 03/30/17 at 08:45; Stop 03/31/17 at 08:44; Status DC Fentanyl Citrate (Fentanyl 2ml Vial) 100 mcg STK-MED ONCE .ROUTE ; Start at 12:51; Stop 03/30/17 at 12:52; Status DC Famotidine (Pepcid) 20 mg STK-MED ONCE .ROUTE ; Start 03/30/17 at 12:54; Stop at 12:55; Status DC Lidocaine HCl (Lidocaine Pf 2% Vial) 5 ml STK-MED ONCE .ROUTE ; Start 03/30/17 at 12:54; Stop 03/30/17 at 12:55; Status DC Ondansetron HCl (Zofran) 4 mg STK-MED ONCE .ROUTE ; Start 03/30/17 at 12:54; Stop 03/30/17 at 12:55; Status DC Propofol 20 ml @ As Directed STK-MED ONCE IV ; Start 03/30/17 at 12:54; Stop at 12:55; Status DC Clindamycin Phosphate 50 ml @ 100 mls/hr 1X ONCE IV Last administered on 03/30t 13:56; Start 03/30/17 at 14:30; Stop 03/30/17 at 14:59; Status DC Sodium Chloride (Sodium Chloride) 50 ml STK-MED ONCE IJ ; Start 03/30/17 at 14: 21; Stop 03/30/17 at 14:22; Status DC Phenylephrine HCl (Fermín-Synephrine Inj) 10 mg STK-MED ONCE .ROUTE ; Start at 14:21; Stop 03/30/17 at 14:22; Status DC Sevoflurane (Ultane) 60 ml STK-MED ONCE IH ; Start 03/30/17 at 14:21; Stop 03/30 at 14:22; Status DC Dexamethasone Sodium Phosphate (Decadron) 20 mg STK-MED ONCE .ROUTE ; Start at 14:21; Stop 03/30/17 at 14:22; Status DC Sevoflurane (Ultane) 60 ml STK-MED ONCE IH ; Start 03/30/17 at 14:42; Stop 03/30 at 14:43; Status DC Oxycodone HCl (Roxicodone) 5 mg PRN Q3HRS PRN PO PAIN; Start 03/30/17 at 15:45 Morphine Sulfate 2 mg PRN Q1HR PRN IV PAIN; Start 03/30/17 at 15:45 Fentanyl Citrate (Fentanyl 2ml Vial) 25 mcg PRN Q1HR PRN IV PAIN Last administered on 03/31/17t 10:50; Start 03/30/17 at 15:45 Senna/Docusate Sodium (Senna Plus) 1 tab DAILY PO Last administered on 10:49; Start 03/30/17 at 16:00 Polyethylene Glycol (miraLAX PACKET) 17 gm PRN DAILY PRN PO CONSTIPATION; Start 03/30/17 at 15:45 Clindamycin Phosphate 50 ml @ 100 mls/hr Q6H IV Last administered on 10:46; Start 03/30/17 at 20:00; Stop 03/31/17 at 08:29; Status DC Ondansetron HCl (Zofran) 4 mg PRN Q4HRS PRN IV NAUSEA/VOMITING; Start 03/30/17 at 15:45 Warfarin Sodium (Coumadin) 7.5 mg 1X ONCE PO Last administered on 03/30/17 17 :11; Start 03/30/17 at 16:00; Stop 03/30/17 at 16:01; Status DC Warfarin Sodium (Coumadin Per Pharmacy) 1 each PRN DAILY PRN MC SEE COMMENTS; Start 03/31/17 at 15:45 Magnesium Hydroxide (Milk Of Magnesia) 2,400 mg 1X PRN PRN PO CONSTIPATION; Start 03/31/17 at 06:00; Stop 04/01/17 at 05:59 Bisacodyl (Dulcolax Supp) 10 mg 1X PRN PRN [place] CONSTIPATION; Start 03/31/17 at 16:00; Stop 04/01/17 at 15:59 Acetaminophen/ Hydrocodone Bitart (Lortab 7.5/325) 1 tab PRN Q4HRS PRN PO PAIN ; Start 03/30/17 at 15:45 Morphine Sulfate 4 mg PRN Q2HR PRN IV PAIN; Start 03/30/17 at 15:45 Acetaminophen/ Hydrocodone Bitart (Lortab 7.5/325) 2 tab PRN Q4HRS PRN PO PAIN ; Start 03/30/17 at 15:45 Dextrose (Dextrose 50%-Water Syringe) 12.5 gm PRN Q15MIN PRN IV SEE COMMENTS; Start 03/30/17 at 15:45 Acetaminophen (Tylenol) 650 mg PRN Q6HRS PRN PO fever; Start 03/31/17 at 08:45 Albuterol Sulfate (Ventolin Neb Soln) 2.5 mg PRN Q4HRS PRN NEB SHORTNESS OF BREATH; Start 03/31/17 at 08:45 Active Scripts Active Reported Effexor Xr (Venlafaxine Hcl) 37.5 Mg Cap.er.24h 1 Cap PO BID Potassium Chloride 20 Meq Tablet.er 20 Meq PO BID Macrodantin (Nitrofurantoin Macrocrystal) 50 Mg Capsule 1 Cap PO HS Namenda Xr (Memantine Hcl) 28 Mg Cap.spr.24 28 Mg PO DAILY Milk Of Magnesia (Magnesium Hydroxide) 400 Mg/5 Ml Oral.susp 400 Mg PO PRN Levothyroxine Sodium 100 Mcg Tablet 1 Tab PO DAILY Probiotic (Lactobacillus Acidophilus) 1 Each Capsule 1 Each PO TID Hydrocortisone Valerate 15 Gm Cream..g. TP BID Estrace (Estradiol) 42.5 Gm Cream.appl 1 Gm VG WEEKLY Cranberry (Cranberry Extract) 500 Mg Capsule 500 Mg PO DAILY Vitamin D3 (Cholecalciferol (Vitamin D3)) 1,000 Unit Tablet 1,000 Unit PO DAILY Tylenol (Acetaminophen) 325 Mg Tablet 1 Tab PO PRN Q4HRS Vitals/I & O Vital Sign - Last 24 Hours 03/30/17 03/30/17 03/30/17 03/30/17 13:20 14:52 14:52 15:07 Temp 98.5 97.4 98.5 97.4 Pulse 72 80 80 Resp 15 20 20 B/P (MAP) 135/56 121/53 109/61 Pulse Ox 92 97 100 O2 Delivery Nasal Cannula Mask Simple Mask Simple Mask O2 Flow Rate 2.0 10 10 10 03/30/17 03/30/17 03/30/17 03/30/17 15:22 15:37 16:00 16:15 Pulse 78 78 84 Resp 20 20 18 B/P (MAP) 105/54 117/55 112/54 (73) 117/56 (76) Pulse Ox 100 78 91 O2 Delivery Simple Mask Nasal Cannula Nasal Cannula O2 Flow Rate 10 2 3.0 03/30/17 03/30/17 03/30/17 03/30/17 16:30 16:45 17:30 20:05 Pulse 89 86 80 Resp 14 16 B/P (MAP) 121/53 (75) 120/53 (75) 111/57 (75) Pulse Ox 86 93 98 O2 Delivery Nasal Cannula Nasal Cannula Nasal Cannula Nasal Cannula O2 Flow Rate 3.0 3.0 3.0 4.0 703/30/17 03/30/17 03/31/17 20:57 22:00 23:00 03:00 Temp 100.0 99.9 100.0 99.9 Pulse 98 84 Resp 18 18 B/P (MAP) 94/48 (63) 94/50 (65) Pulse Ox 98 97 97 O2 Delivery Nasal Cannula Nasal Cannula Nasal Cannula Nasal Cannula O2 Flow Rate 4.0 4.0 4.0 4.0 03/31/17 03/31/17 03/31/17 07:00 10:48 10:50 Temp 98.1 98.1 Pulse 88 Resp 16 18 18 B/P (MAP) 101/46 (64) Pulse Ox 96 O2 Delivery Room Air Nasal Cannula Nasal Cannula O2 Flow Rate 2.0 2.0 Intake and Output 03/30/17 03/30/17 03/31/17 15:00 23:00 07:00 Intake Total 1000 ml 360 ml 1470 ml Output Total 100 ml 0 ml 275 ml Balance 900 ml 360 ml 1195 ml NATALEE DOYLE MD Mar 31, 2017 11:01
[2017-03-31 15:00] VITALS: BP 101/42
[2017-03-31 15:26] LABS: INR 1.6 (0.8-1.1); PROTHROMBIN TIME PATIENT 18.3 SEC (11.7-14.0)
[2017-03-31 15:38] LABS: HEMATOCRIT 23.3 % (36.0-47.0); HEMOGLOBIN 7.8 g/dL (12.0-15.5)
[2017-03-31] MEDS ORDERED: BRIM5DRO2 OP (15:45)
[2017-03-31] MEDS ORDERED: MINE15DR2 OP (15:45)
[2017-03-31] MEDS ORDERED: LATA2.5D3 OP (15:45)
[2017-03-31] MEDS ORDERED: BISACODYL 10 MG SUPP.RECT. PR PRN (16:00)
[2017-03-31] MEDS ORDERED: WARFARIN 3 MG TABLET. PO ONE (16:00)
[2017-03-31] MEDS: SOOTHE XP OU SCH ×2 (17:03→21:13)
[2017-03-31 19:00] VITALS: BP 123/52
[2017-03-31] MEDS: LATANOPROST 0.005% OPHTH SOLUTION 2.5ML BOTTLE. OD SCH (21:12)
[2017-03-31] MEDS: COMBIGAN OD SCH (21:13)
[2017-03-31 23:00] VITALS: BP 87/39
[2017-04-01] MEDS: IV NORMAL SALINE 1000ML BAG 1,000 ML IV SCH ×2 (02:55→16:23)
[2017-04-01 03:00] VITALS: BP 101/47
[2017-04-01] MEDS: LEVOTHYROXINE 100 MCG TABLET PO SCH (06:17)
[2017-04-01 07:00] VITALS: BP 99/44
[2017-04-01 07:22] LABS: BASO # 0.1 x10^3/uL (0.0-0.2); BASO % 1 % (0-3); EOS % 1 % (0-3); HEMATOCRIT 21.5 % (36.0-47.0); HEMOGLOBIN 7.2 g/dL (12.0-15.5); LYMPH # 1.4 x10^3/uL (1.0-4.8); LYMPH % 14 % (24-48); MEAN CORPUSCULAR HEMOGLOBIN 33 pg (25-35); MEAN CORPUSCULAR HGB CONC 33 g/dL (31-37); MEAN CORPUSCULAR VOLUME 99 fL (79-100); MONO % 11 % (0-9); NEUT % 74 % (31-73); PLATELET COUNT 137 x10^3/uL (140-400); RED BLOOD COUNT 2.18 x10^6/uL (3.50-5.40); RED CELL DISTRIBUTION WIDTH 14.4 % (11.5-14.5)
[2017-04-01 07:25] LABS: PROTHROMBIN TIME PATIENT 21.5 SEC (11.7-14.0)
--- NOTE | 2017-04-01 08:32 | PDOC ---
PROGRESS NOTES Subjective Subjective Problems overnight: Sleepy but arousable no complaints Objective Vital Signs Vital Signs Date Time Temp Pulse Resp B/P (MAP) Pulse Ox O2 Delivery O2 Flow Rate FiO2 04/01/17 07:52 Nasal Cannula 2.0 04/01/17 03:00 96.7 89 20 101/47 (65) 95 96.7 Physical Exam Incision clean dry intact leg lengths equal moving ankles spontaneously Labs Laboratory Tests Test 03/31/17 15:00 03/31/17 15:30 04/01/17 06:45 Prothrombin Time 18.3 SEC (11.7-14.0) 21.5 SEC (11.7-14.0) Prothromb Time International Ratio 1.6 (0.8-1.1) 2.0 (0.8-1.1) Hemoglobin 7.8 g/dL (12.0-15.5) 7.2 g/dL (12.0-15.5) Hematocrit 23.3 % (36.0-47.0) 21.5 % (36.0-47.0) Mean Corpuscular Hemoglobin Concent 33 g/dL (31-37) 33 g/dL (31-37) White Blood Count 10.0 x10^3/uL (4.0-11.0) Red Blood Count 2.18 x10^6/uL (3.50-5.40) Mean Corpuscular Volume 99 fL (79-100) Mean Corpuscular Hemoglobin 33 pg (25-35) Red Cell Distribution Width 14.4 % (11.5-14.5) Platelet Count 137 x10^3/uL (140-400) Neutrophils (%) (Auto) 74 % (31-73) Lymphocytes (%) (Auto) 14 % (24-48) Monocytes (%) (Auto) 11 % (0-9) Eosinophils (%) (Auto) 1 % (0-3) Basophils (%) (Auto) 1 % (0-3) Neutrophils # (Auto) 7.4 x10^3uL (1.8-7.7) Lymphocytes # (Auto) 1.4 x10^3/uL (1.0-4.8) Monocytes # (Auto) 1.1 x10^3/uL (0.0-1.1) Eosinophils # (Auto) 0.1 x10^3/uL (0.0-0.7) Basophils # (Auto) 0.1 x10^3/uL (0.0-0.2) Laboratory Tests Test 03/31/17 15:00 03/31/17 15:30 04/01/17 06:45 Prothrombin Time 18.3 SEC (11.7-14.0) 21.5 SEC (11.7-14.0) Prothromb Time International Ratio 1.6 (0.8-1.1) 2.0 (0.8-1.1) Hemoglobin 7.8 g/dL (12.0-15.5) 7.2 g/dL (12.0-15.5) Hematocrit 23.3 % (36.0-47.0) 21.5 % (36.0-47.0) Mean Corpuscular Hemoglobin Concent 33 g/dL (31-37) 33 g/dL (31-37) White Blood Count 10.0 x10^3/uL (4.0-11.0) Red Blood Count 2.18 x10^6/uL (3.50-5.40) Mean Corpuscular Volume 99 fL (79-100) Mean Corpuscular Hemoglobin 33 pg (25-35) Red Cell Distribution Width 14.4 % (11.5-14.5) Platelet Count 137 x10^3/uL (140-400) Neutrophils (%) (Auto) 74 % (31-73) Lymphocytes (%) (Auto) 14 % (24-48) Monocytes (%) (Auto) 11 % (0-9) Eosinophils (%) (Auto) 1 % (0-3) Basophils (%) (Auto) 1 % (0-3) Neutrophils # (Auto) 7.4 x10^3uL (1.8-7.7) Lymphocytes # (Auto) 1.4 x10^3/uL (1.0-4.8) Monocytes # (Auto) 1.1 x10^3/uL (0.0-1.1) Eosinophils # (Auto) 0.1 x10^3/uL (0.0-0.7) Basophils # (Auto) 0.1 x10^3/uL (0.0-0.2) Imaging Intraoperative x-rays show excellent alignment of an intertrochanteric hip fracture Assessment Assessment POD# [2], S/P [ORIF left intertrochanteric hip fracture] Problems: Plan Plan of Care Mobilize with physical therapy, 25% weightbearing Anticoagulation managed by pharmacy Placement when medically stable for discharge Follow-up Dr. Corbett about 2 weeks postoperative for wound check staple removal DARINEL CORBETT MD Apr 01, 2017 08:32
[2017-04-01] MEDS: SENNOSIDES/DOCUSATE 8.6/50MG TABLET. PO SCH (08:57)
[2017-04-01] MEDS: MEMANTINE 10 MG TABLET. PO SCH ×2 (08:57→21:48)
[2017-04-01] MEDS: POTASSIUM CHLORIDE 20 MEQ TABLET.ER. PO SCH ×2 (08:57→17:03)
[2017-04-01] MEDS: VENLAFAXINE XR 37.5 MG CAP.ER.24H. PO SCH ×2 (08:57→21:48)
[2017-04-01] MEDS: LACTOBACILLUS ACIDOPH & BULGAR 1 TABLET. PO SCH ×3 (08:57→21:48)
[2017-04-01] MEDS: COMBIGAN OD SCH ×2 (08:58→21:47)
[2017-04-01] MEDS: SOOTHE XP OU SCH ×4 (08:58→21:47)
[2017-04-01] MEDS: ACETAMINOPHEN 325 MG TABLET. PO PRN (10:20)
--- NOTE | 2017-04-01 10:42 | PDOC ---
PROGRESS NOTES Chief Complaint Chief Complaint left hip fx s/p sx (03/30) POD # 3 Assisted LIving resident Dementia, mild vs cognitive impairment HArd of hearing Fevers on POD #1, likely atelectasis PMH -HTN -Dementia -Depression -Hypothyroidism History of Present Illness History of Present Illness NO fevers today IS at bedside, amazingly was able to do it per RN report NO dtr at bedside Wants to dc soon Sunday, per dtr BUt i think she will need more than her current [place] - either SNU or HH in [place] if PT would recommend that Otherwise, labs look good CLeared from ortho to dc to rehab Needs an aide sometimes to feed her PLAN: Sunday dc plans Supportive care COnt IS Vitals Vitals Vital Signs Date Time Temp Pulse Resp B/P (MAP) Pulse Ox O2 Delivery O2 Flow Rate FiO2 04/01/17 07:52 Nasal Cannula 2.0 04/01/17 07:00 97.9 86 20 99/44 (62) 98 97.9 Physical Exam General: Cooperative, No acute distress, Other (disoriented, ) Heart: Regular rate, No murmurs Lungs: Clear, Other (No RRW) Abdomen: Normal bowel sounds, Soft Extremities: No clubbing, Normal pulses, Other (externally rotated left leg to hip, patella nearly 90 degrees abducted) Skin: No rashes, No significant lesion Labs LABS Laboratory Tests Test 03/31/17 15:00 03/31/17 15:30 04/01/17 06:45 Prothrombin Time 18.3 SEC (11.7-14.0) 21.5 SEC (11.7-14.0) Prothromb Time International Ratio 1.6 (0.8-1.1) 2.0 (0.8-1.1) Hemoglobin 7.8 g/dL (12.0-15.5) 7.2 g/dL (12.0-15.5) Hematocrit 23.3 % (36.0-47.0) 21.5 % (36.0-47.0) Mean Corpuscular Hemoglobin Concent 33 g/dL (31-37) 33 g/dL (31-37) White Blood Count 10.0 x10^3/uL (4.0-11.0) Red Blood Count 2.18 x10^6/uL (3.50-5.40) Mean Corpuscular Volume 99 fL (79-100) Mean Corpuscular Hemoglobin 33 pg (25-35) Red Cell Distribution Width 14.4 % (11.5-14.5) Platelet Count 137 x10^3/uL (140-400) Neutrophils (%) (Auto) 74 % (31-73) Lymphocytes (%) (Auto) 14 % (24-48) Monocytes (%) (Auto) 11 % (0-9) Eosinophils (%) (Auto) 1 % (0-3) Basophils (%) (Auto) 1 % (0-3) Neutrophils # (Auto) 7.4 x10^3uL (1.8-7.7) Lymphocytes # (Auto) 1.4 x10^3/uL (1.0-4.8) Monocytes # (Auto) 1.1 x10^3/uL (0.0-1.1) Eosinophils # (Auto) 0.1 x10^3/uL (0.0-0.7) Basophils # (Auto) 0.1 x10^3/uL (0.0-0.2) Review of Systems Review of Systems dementia - limited Comment Review of Relevant I have reviewed the following items ramy (where applicable) has been applied. Labs Laboratory Tests Test 03/31/17 15:00 03/31/17 15:30 04/01/17 06:45 Prothrombin Time 18.3 SEC (11.7-14.0) 21.5 SEC (11.7-14.0) Prothromb Time International Ratio 1.6 (0.8-1.1) 2.0 (0.8-1.1) Hemoglobin 7.8 g/dL (12.0-15.5) 7.2 g/dL (12.0-15.5) Hematocrit 23.3 % (36.0-47.0) 21.5 % (36.0-47.0) Mean Corpuscular Hemoglobin Concent 33 g/dL (31-37) 33 g/dL (31-37) White Blood Count 10.0 x10^3/uL (4.0-11.0) Red Blood Count 2.18 x10^6/uL (3.50-5.40) Mean Corpuscular Volume 99 fL (79-100) Mean Corpuscular Hemoglobin 33 pg (25-35) Red Cell Distribution Width 14.4 % (11.5-14.5) Platelet Count 137 x10^3/uL (140-400) Neutrophils (%) (Auto) 74 % (31-73) Lymphocytes (%) (Auto) 14 % (24-48) Monocytes (%) (Auto) 11 % (0-9) Eosinophils (%) (Auto) 1 % (0-3) Basophils (%) (Auto) 1 % (0-3) Neutrophils # (Auto) 7.4 x10^3uL (1.8-7.7) Lymphocytes # (Auto) 1.4 x10^3/uL (1.0-4.8) Monocytes # (Auto) 1.1 x10^3/uL (0.0-1.1) Eosinophils # (Auto) 0.1 x10^3/uL (0.0-0.7) Basophils # (Auto) 0.1 x10^3/uL (0.0-0.2) Laboratory Tests Test 03/31/17 15:00 03/31/17 15:30 04/01/17 06:45 Prothrombin Time 18.3 SEC (11.7-14.0) 21.5 SEC (11.7-14.0) Prothromb Time International Ratio 1.6 (0.8-1.1) 2.0 (0.8-1.1) Hemoglobin 7.8 g/dL (12.0-15.5) 7.2 g/dL (12.0-15.5) Hematocrit 23.3 % (36.0-47.0) 21.5 % (36.0-47.0) Mean Corpuscular Hemoglobin Concent 33 g/dL (31-37) 33 g/dL (31-37) White Blood Count 10.0 x10^3/uL (4.0-11.0) Red Blood Count 2.18 x10^6/uL (3.50-5.40) Mean Corpuscular Volume 99 fL (79-100) Mean Corpuscular Hemoglobin 33 pg (25-35) Red Cell Distribution Width 14.4 % (11.5-14.5) Platelet Count 137 x10^3/uL (140-400) Neutrophils (%) (Auto) 74 % (31-73) Lymphocytes (%) (Auto) 14 % (24-48) Monocytes (%) (Auto) 11 % (0-9) Eosinophils (%) (Auto) 1 % (0-3) Basophils (%) (Auto) 1 % (0-3) Neutrophils # (Auto) 7.4 x10^3uL (1.8-7.7) Lymphocytes # (Auto) 1.4 x10^3/uL (1.0-4.8) Monocytes # (Auto) 1.1 x10^3/uL (0.0-1.1) Eosinophils # (Auto) 0.1 x10^3/uL (0.0-0.7) Basophils # (Auto) 0.1 x10^3/uL (0.0-0.2) Medications Current Medications Sodium Chloride 1,000 ml @ 75 mls/hr [id number] IV Last administered on 02:55; Start 03/29/17 at 22:45 Oxycodone/ Acetaminophen (Percocet 5/325) 1 tab PRN Q4HRS PRN PO PAIN Last administered on 03/31/17 19:42; Start 03/29/17 at 22:45 Morphine Sulfate 4 mg PRN Q2HR PRN IV PAIN Last administered on 03/30/17 07:29 ; Start 03/29/17 at 22:45; Stop 03/31/17 at 14:20; Status DC Acetaminophen (Tylenol) 325 mg PRN Q4HRS PRN PO PAIN/TEMP; Start 03/29/17 at 23 :15 Estradiol (Estrace) 1 [place] WEEKLY VG ; Start 04/05/17 at 09:00 Levothyroxine Sodium (Synthroid) 100 mcg DAILY06 PO Last administered on 06:17; Start 03/30/17 at 06:00 Magnesium Hydroxide (Milk Of Magnesia) 400 mg DAILY PRN PO CONSTIPATION; Start 03/29/17 at 23:15 Venlafaxine HCl (Effexor Xr) 37.5 mg BID PO Last administered on 04/01/17 08: 57; Start 03/29/17 at 23:45 Lactobacillus Acidophilus (Bacid, Maddison-Bid) 1 tab TID PO Last administered on 08:57; Start 03/30/17 at 09:00 Memantine (Namenda) 10 mg BID PO Last administered on 04/01/17 08:57; Start at 09:00 Potassium Chloride (Klor-Con) 20 meq BIDWMEALS PO Last administered on 08:57; Start 03/30/17 at 08:00 Pneumococcal Polyvalent Vaccine (Do NOT chart on this placeholder) 1 each 1X ONCE MC ; Start 03/30/17 at 02:15; Stop 03/30/17 at 02:16; Status UNV Ondansetron HCl (Zofran) 4 mg PRN Q6HRS PRN IV NAUSEA/VOMITING; Start 03/30/17 at 08:45; Stop 03/31/17 at 08:44; Status DC Fentanyl Citrate (Fentanyl 2ml Vial) 25 mcg PRN Q5MIN PRN IV MILD PAIN; Start 03/30/17 at 08:45; Stop 03/31/17 at 08:44; Status DC Fentanyl Citrate (Fentanyl 2ml Vial) 50 mcg PRN Q5MIN PRN IV MODERATE PAIN; Start 03/30/17 at 08:45; Stop 03/31/17 at 08:44; Status DC Morphine Sulfate 1 mg PRN Q10MIN PRN IV SEVERE PAIN; Start 03/30/17 at 08:45; Stop 03/31/17 at 08:44; Status DC Ringer's Solution 1,000 ml @ 30 mls/hr Q24H IV Last administered on 03/30/17 15:22; Start 03/30/17 at 08:41; Stop 03/30/17 at 20:40; Status DC Lidocaine HCl 2 ml PRN 1X PRN ID PRIOR TO IV START; Start 03/30/17 at 08:45; Stop 03/31/17 at 08:44; Status DC Hydromorphone HCl (Dilaudid) 0.5 mg PRN Q10MIN PRN IV SEV PAIN, Second choice; Start 03/30/17 at 08:45; Stop 03/31/17 at 08:44; Status DC Prochlorperazine Edisylate (Compazine) 5 mg PACU PRN PRN IV NAUSEA, MRX1; Start 03/30/17 at 08:45; Stop 03/31/17 at 08:44; Status DC Fentanyl Citrate (Fentanyl 2ml Vial) 100 mcg STK-MED ONCE .ROUTE ; Start at 12:51; Stop 03/30/17 at 12:52; Status DC Famotidine (Pepcid) 20 mg STK-MED ONCE .ROUTE ; Start 03/30/17 at 12:54; Stop at 12:55; Status DC Lidocaine HCl (Lidocaine Pf 2% Vial) 5 ml STK-MED ONCE .ROUTE ; Start 03/30/17 at 12:54; Stop 03/30/17 at 12:55; Status DC Ondansetron HCl (Zofran) 4 mg STK-MED ONCE .ROUTE ; Start 03/30/17 at 12:54; Stop 03/30/17 at 12:55; Status DC Propofol 20 ml @ As Directed STK-MED ONCE IV ; Start 03/30/17 at 12:54; Stop at 12:55; Status DC Clindamycin Phosphate 50 ml @ 100 mls/hr 1X ONCE IV Last administered on 03/30t 13:56; Start 03/30/17 at 14:30; Stop 03/30/17 at 14:59; Status DC Sodium Chloride (Sodium Chloride) 50 ml STK-MED ONCE IJ ; Start 03/30/17 at 14: 21; Stop 03/30/17 at 14:22; Status DC Phenylephrine HCl (Fermín-Synephrine Inj) 10 mg STK-MED ONCE .ROUTE ; Start at 14:21; Stop 03/30/17 at 14:22; Status DC Sevoflurane (Ultane) 60 ml STK-MED ONCE IH ; Start 03/30/17 at 14:21; Stop 03/30 at 14:22; Status DC Dexamethasone Sodium Phosphate (Decadron) 20 mg STK-MED ONCE .ROUTE ; Start at 14:21; Stop 03/30/17 at 14:22; Status DC Sevoflurane (Ultane) 60 ml STK-MED ONCE IH ; Start 03/30/17 at 14:42; Stop 03/30 at 14:43; Status DC Oxycodone HCl (Roxicodone) 5 mg PRN Q3HRS PRN PO PAIN; Start 03/30/17 at 15:45 Morphine Sulfate 2 mg PRN Q1HR PRN IV PAIN; Start 03/30/17 at 15:45 Fentanyl Citrate (Fentanyl 2ml Vial) 25 mcg PRN Q1HR PRN IV PAIN Last administered on 03/31/17 21:14; Start 03/30/17 at 15:45 Senna/Docusate Sodium (Senna Plus) 1 tab DAILY PO Last administered on 08:57; Start 03/30/17 at 16:00 Polyethylene Glycol (miraLAX PACKET) 17 gm PRN DAILY PRN PO CONSTIPATION; Start 03/30/17 at 15:45 Clindamycin Phosphate 50 ml @ 100 mls/hr Q6H IV Last administered on 10:46; Start 03/30/17 at 20:00; Stop 03/31/17 at 08:29; Status DC Ondansetron HCl (Zofran) 4 mg PRN Q4HRS PRN IV NAUSEA/VOMITING; Start 03/30/17 at 15:45 Warfarin Sodium (Coumadin) 7.5 mg 1X ONCE PO Last administered on 03/30/17 17 :11; Start 03/30/17 at 16:00; Stop 03/30/17 at 16:01; Status DC Warfarin Sodium (Coumadin Per Pharmacy) 1 each PRN DAILY PRN MC SEE COMMENTS Last administered on 04/01/17 09:20; Start 03/31/17 at 15:45 Magnesium Hydroxide (Milk Of Magnesia) 2,400 mg 1X PRN PRN PO CONSTIPATION; Start 03/31/17 at 06:00; Stop 04/01/17 at 05:59; Status DC Bisacodyl (Dulcolax Supp) 10 mg 1X PRN PRN [place] CONSTIPATION; Start 03/31/17 at 16:00; Stop 04/01/17 at 15:59 Acetaminophen/ Hydrocodone Bitart (Lortab 7.5/325) 1 tab PRN Q4HRS PRN PO PAIN ; Start 03/30/17 at 15:45 Morphine Sulfate 4 mg PRN Q2HR PRN IV PAIN; Start 03/30/17 at 15:45 Acetaminophen/ Hydrocodone Bitart (Lortab 7.5/325) 2 tab PRN Q4HRS PRN PO PAIN ; Start 03/30/17 at 15:45 Dextrose (Dextrose 50%-Water Syringe) 12.5 gm PRN Q15MIN PRN IV SEE COMMENTS; Start 03/30/17 at 15:45 Acetaminophen (Tylenol) 650 mg PRN Q6HRS PRN PO fever Last administered on 04/01 10:20; Start 03/31/17 at 08:45 Albuterol Sulfate (Ventolin Neb Soln) 2.5 mg PRN Q4HRS PRN NEB SHORTNESS OF BREATH; Start 03/31/17 at 08:45 Warfarin Sodium (Coumadin) 3 mg 1X WARF ONCE PO Last administered on 17:02; Start 03/31/17 at 16:00; Stop 03/31/17 at 16:01; Status DC Latanoprost (Xalatan) 1 drop HS OD Last administered on 03/31/17 21:12; Start 03/31/17 at 21:00 Non-Formulary Medication 1 DROP BID OD Last administered on 04/01/17 08:58; Start 03/31/17 at 21:00 Non-Formulary Medication 1 DROP QID OU Last administered on 04/01/17 08:58; Start 03/31/17 at 17:00 Warfarin Sodium (Coumadin) 2 mg 1X WARF ONCE PO ; Start 04/01/17 at 16:00; Stop 04/01/17 at 16:01 Active Scripts Active Reported Combigan Eye Drops (Brimonidine Tartrate/Timolol) 5 Ml Drops 5 Ml OP BID One drop in right eye BID Latanoprost 2.5 Ml Drops 1 Drop OP HS Soothe Xp Eye Drops (Mineral Oil, Light/Mineral Oil) 15 Ml Drops 15 Ml OP QID Effexor Xr (Venlafaxine Hcl) 37.5 Mg Cap.er.24h 1 Cap PO BID Potassium Chloride 20 Meq Tablet.er 20 Meq PO BID Macrodantin (Nitrofurantoin Macrocrystal) 50 Mg Capsule 1 Cap PO HS Namenda Xr (Memantine Hcl) 28 Mg Cap.spr.24 28 Mg PO DAILY Milk Of Magnesia (Magnesium Hydroxide) 400 Mg/5 Ml Oral.susp 400 Mg PO PRN Levothyroxine Sodium 100 Mcg Tablet 1 Tab PO DAILY Probiotic (Lactobacillus Acidophilus) 1 Each Capsule 1 Each PO TID Hydrocortisone Valerate 15 Gm Cream..g. TP BID Estrace (Estradiol) 42.5 Gm Cream.appl 1 Gm VG WEEKLY Cranberry (Cranberry Extract) 500 Mg Capsule 500 Mg PO DAILY Vitamin D3 (Cholecalciferol (Vitamin D3)) 1,000 Unit Tablet 1,000 Unit PO DAILY Tylenol (Acetaminophen) 325 Mg Tablet 1 Tab PO PRN Q4HRS Vitals/I & O Vital Sign - Last 24 Hours 03/31/17 03/31/17 03/31/17 03/31/17 10:48 10:50 11:00 11:20 Temp 99.6 99.6 Pulse 95 Resp 18 18 16 20 B/P (MAP) 108/34 (58) Pulse Ox 93 O2 Delivery Nasal Cannula Nasal Cannula Room Air Nasal Cannula O2 Flow Rate 2.0 2.0 2.0 03/31/17 03/31/17 03/31/17 03/31/17 11:39 11:48 15:00 19:00 Temp 99.0 98.8 99.0 98.8 Pulse 80 101 Resp 20 16 18 B/P (MAP) 101/42 (61) 123/52 (75) Pulse Ox 94 95 95 O2 Delivery Nasal Cannula Nasal Cannula Room Air Room Air O2 Flow Rate 4.0 2.0 03/31/17 03/31/17 03/31/17 04/01/17 20:00 21:14 23:00 03:00 Temp 97.5 96.7 97.5 96.7 Pulse 77 89 Resp 20 20 B/P (MAP) 87/39 (55) 101/47 (65) Pulse Ox 94 95 O2 Delivery Nasal Cannula Room Air Room Air Room Air O2 Flow Rate 2.0 04/01/17 04/01/17 07:00 07:52 Temp 97.9 97.9 Pulse 86 Resp 20 B/P (MAP) 99/44 (62) Pulse Ox 98 O2 Delivery Room Air Nasal Cannula O2 Flow Rate 4.0 2.0 Intake and Output 03/31/17 03/31/17 04/01/17 15:00 23:00 07:00 Intake Total 100 ml Output Total 250 ml 600 ml Balance -250 ml -500 ml NATALEE DOYLE MD Apr 01, 2017 10:42
[2017-04-01 11:00] VITALS: BP 84/39
[2017-04-01 15:00] VITALS: BP 97/38
[2017-04-01] MEDS ORDERED: WARFARIN 2 MG TABLET. PO ONE (16:00)
[2017-04-01 19:00] VITALS: BP 107/48
[2017-04-01] MEDS: LATANOPROST 0.005% OPHTH SOLUTION 2.5ML BOTTLE. OD SCH (21:48)
[2017-04-01] MEDS: HYDROcodone/APAP 7.5/325MG 1 TAB TABLET PO PRN (21:50)
[2017-04-01 23:00] VITALS: BP 88/45
[2017-04-02] VITALS (14 sets, daily range): BP systolic 95–135; BP diastolic 42–67
[2017-04-02] MEDS: LEVOTHYROXINE 100 MCG TABLET PO SCH (06:21)
[2017-04-02] MEDS: IV NORMAL SALINE 1000ML BAG 1,000 ML IV SCH (06:45)
[2017-04-02 07:08] LABS: PROTHROMBIN TIME PATIENT 21.5 SEC (11.7-14.0)
[2017-04-02 07:44] LABS: BASO # 0.1 x10^3/uL (0.0-0.2); BASO % 1 % (0-3); EOS % 2 % (0-3); LYMPH # 1.2 x10^3/uL (1.0-4.8); LYMPH % 12 % (24-48); MEAN CORPUSCULAR HEMOGLOBIN 33 pg (25-35); MEAN CORPUSCULAR HGB CONC 33 g/dL (31-37); MEAN CORPUSCULAR VOLUME 99 fL (79-100); MONO % 9 % (0-9); NEUT % 76 % (31-73); PLATELET COUNT 148 x10^3/uL (140-400); RED CELL DISTRIBUTION WIDTH 14.3 % (11.5-14.5); WHITE BLOOD COUNT 9.6 x10^3/uL (4.0-11.0)
[2017-04-02 07:47] LABS: HEMATOCRIT 18.9 % (36.0-47.0); HEMOGLOBIN 6.3 g/dL (12.0-15.5)
[2017-04-02] MEDS: POTASSIUM CHLORIDE 20 MEQ TABLET.ER. PO SCH ×2 (09:32→17:43)
[2017-04-02] MEDS: SENNOSIDES/DOCUSATE 8.6/50MG TABLET. PO SCH (09:33)
[2017-04-02] MEDS: VENLAFAXINE XR 37.5 MG CAP.ER.24H. PO SCH ×2 (09:33→21:06)
[2017-04-02] MEDS: HYDROcodone/APAP 7.5/325MG 1 TAB TABLET PO PRN (09:33)
[2017-04-02] MEDS: LACTOBACILLUS ACIDOPH & BULGAR 1 TABLET. PO SCH ×3 (09:33→21:06)
[2017-04-02] MEDS: MEMANTINE 10 MG TABLET. PO SCH ×2 (09:33→21:06)
[2017-04-02] MEDS: COMBIGAN OD SCH ×2 (09:34→21:05)
[2017-04-02] MEDS: SOOTHE XP OU SCH ×4 (09:35→21:06)
--- NOTE | 2017-04-02 12:18 | PDOC ---
PROGRESS NOTES Chief Complaint Chief Complaint L hip fx ASSESSMENT AND PLAN: 1. L hip fx: s/p ORIF on 03/30 2. Pain control: good. minimize narcotics - excessive sedation 3. Anemia: worsening, prob multifactorial, with acute bleed with surgery and chronic inflammation. transfuse PRBC x1 today. 4. Constipation: 2/2 narcotics and underlying chronic symptoms 5. OAC: on warferin x1 month post surgery. 6. Dementia: mild. cont namenda 7. Depression: 8. Hypothyroidism. 9. Dispo: to rehab in AM History of Present Illness History of Present Illness very lethargic, wakes with difficulties, minimal verbal response Vitals Vitals Vital Signs Date Time Temp Pulse Resp B/P (MAP) Pulse Ox O2 Delivery O2 Flow Rate FiO2 04/02/17 11:00 99.0 75 20 106/50 (68) 94 Nasal Cannula 4.0 99.0 Physical Exam General: Cooperative, No acute distress, Other (disoriented, ) Heart: Regular rate, No murmurs Lungs: Clear, Other (No RRW) Abdomen: Normal bowel sounds, Soft Extremities: No clubbing, Normal pulses, Other (externally rotated left leg to hip, patella nearly 90 degrees abducted) Skin: No rashes, No significant lesion Labs LABS Laboratory Tests Test 04/02/17 05:45 White Blood Count 9.6 x10^3/uL (4.0-11.0) Red Blood Count 1.90 x10^6/uL (3.50-5.40) Hemoglobin 6.3 g/dL (12.0-15.5) Hematocrit 18.9 % (36.0-47.0) Mean Corpuscular Volume 99 fL (79-100) Mean Corpuscular Hemoglobin 33 pg (25-35) Mean Corpuscular Hemoglobin Concent 33 g/dL (31-37) Red Cell Distribution Width 14.3 % (11.5-14.5) Platelet Count 148 x10^3/uL (140-400) Neutrophils (%) (Auto) 76 % (31-73) Lymphocytes (%) (Auto) 12 % (24-48) Monocytes (%) (Auto) 9 % (0-9) Eosinophils (%) (Auto) 2 % (0-3) Basophils (%) (Auto) 1 % (0-3) Neutrophils # (Auto) 7.3 x10^3uL (1.8-7.7) Lymphocytes # (Auto) 1.2 x10^3/uL (1.0-4.8) Monocytes # (Auto) 0.9 x10^3/uL (0.0-1.1) Eosinophils # (Auto) 0.2 x10^3/uL (0.0-0.7) Basophils # (Auto) 0.1 x10^3/uL (0.0-0.2) Prothrombin Time 21.5 SEC (11.7-14.0) Prothromb Time International Ratio 2.0 (0.8-1.1) LEONOR GUARDADO MD Apr 02, 2017 12:18
[2017-04-02] MEDS ORDERED: oxyCODONE/APAP 5/325 1 TAB TABLET PO PRN (16:00)
[2017-04-02] MEDS ORDERED: WARFARIN 2 MG TABLET. PO ONE (16:00)
[2017-04-02] MEDS: ACETAMINOPHEN 325 MG TABLET. PO PRN (19:50)
[2017-04-02] MEDS: LATANOPROST 0.005% OPHTH SOLUTION 2.5ML BOTTLE. OD SCH (21:05)
[2017-04-03 03:53] VITALS: BP 113/53
[2017-04-03 06:16] LABS: BASO # 0.1 x10^3/uL (0.0-0.2); BASO % 1 % (0-3); EOS % 3 % (0-3); HEMATOCRIT 23.2 % (36.0-47.0); HEMOGLOBIN 7.7 g/dL (12.0-15.5); LYMPH # 1.1 x10^3/uL (1.0-4.8); LYMPH % 12 % (24-48); MEAN CORPUSCULAR HEMOGLOBIN 32 pg (25-35); MEAN CORPUSCULAR HGB CONC 34 g/dL (31-37); MEAN CORPUSCULAR VOLUME 95 fL (79-100); MONO % 9 % (0-9); NEUT % 76 % (31-73); PLATELET COUNT 187 x10^3/uL (140-400); RED BLOOD COUNT 2.44 x10^6/uL (3.50-5.40); WHITE BLOOD COUNT 9.4 x10^3/uL (4.0-11.0)
[2017-04-03] MEDS: LEVOTHYROXINE 100 MCG TABLET PO SCH (06:20)
[2017-04-03 06:21] LABS: INR 1.8 (0.8-1.1); PROTHROMBIN TIME PATIENT 19.9 SEC (11.7-14.0)
[2017-04-03 07:00] VITALS: BP 111/56
[2017-04-03] MEDS: COMBIGAN OD SCH (09:00)
[2017-04-03] MEDS: MEMANTINE 10 MG TABLET. PO SCH (09:01)
[2017-04-03] MEDS: SENNOSIDES/DOCUSATE 8.6/50MG TABLET. PO SCH (09:01)
[2017-04-03] MEDS: VENLAFAXINE XR 37.5 MG CAP.ER.24H. PO SCH (09:01)
[2017-04-03] MEDS: POTASSIUM CHLORIDE 20 MEQ TABLET.ER. PO SCH (09:01)
[2017-04-03] MEDS: LACTOBACILLUS ACIDOPH & BULGAR 1 TABLET. PO SCH (09:01)
[2017-04-03] MEDS: ACETAMINOPHEN 325 MG TABLET. PO PRN (09:01)
[2017-04-03] MEDS: SOOTHE XP OU SCH (09:02)
[2017-04-03] MEDS ORDERED: BRIMONIDINE 0.2% OPHTH SOLUTION 5ML BOTTLE. OD SCH (10:00)
--- NOTE | 2017-04-03 10:20 | RAD ---
AP chest radiograph 04/03/2017 Clinical indication: Shortness of air Comparison: None. Findings: Bilateral shoulder arthroplasties. Dual-lead left chest wall cardiac connection device. Hypoinflation of both lungs with bibasilar atelectasis. Cardiac and mediastinal silhouettes are within normal limits. Probable trace left pleural effusion. No pneumothorax. There is lucency underneath the right hemidiaphragm. Impression: 1. Hypoinflation of both lungs with mild bibasilar atelectasis and probable trace left pleural effusion. 2. Lucency underneath the right hemidiaphragm which may represent interposition of a gaseous distended loop of large bowel. If there are peritoneal signs, dedicated abdominal radiograph or CT is recommended.
[2017-04-03 11:00] VITALS: BP 118/56
[2017-04-03] MEDS ORDERED: OXYC1TAB7 PO (11:24)
[2017-04-03] MEDS ORDERED: WARFARIN 3 MG TABLET. PO ONE (16:00)
[2017-04-03] MEDS ORDERED: TIMOLOL 0.5% OPHTH SOLUTION 5ML BOTTLE. OD SCH (21:00)
--- NOTE | 2017-04-04 00:25 | DS ---
DATE OF DISCHARGE: 04/03/2017 CHIEF COMPLAINT: Left hip fracture. HOSPITAL COURSE: The patient is an 87-year-old woman who presented after fracture of her left hip in a fall. This was addressed with ORIF on 04/02/2017. She recovered well from her surgery. She was noted to have slightly elevated temperatures without fevers and chest x-ray was obtained on day of discharge revealing minimal pleural effusion, no infiltrates. The patient was therefore discharged to rehab on 04/03/2017. PHYSICAL EXAMINATION: VITAL SIGNS: Blood pressure of 118/56, heart rate at 83, temperature at 98.6. GENERAL: This is an 87-year-old woman, alert, slow to respond, in no acute distress. HEENT: Shows no scleral icterus. NECK: Supple. LUNGS: Clear. HEART: Regular rate and rhythm. ABDOMEN: Positive bowel sounds, soft, nontender. EXTREMITIES: Show no edema. The left thigh incision is covered with bandage. DISCHARGE DATE: 04/03/2017. DISCHARGE DIAGNOSES: Femoral fracture, status post open reduction and internal fixation. DISCHARGE DISPOSITION: To SNF. DISCHARGE CONDITION: Improved. DISCHARGE INSTRUCTIONS: The patient will receive physical and occupational therapy. She will follow up with her primary care physician upon return to home. Greater than 30 minutes were spent in arranging discharge. LEONOR GUARDADO MD DR: UR/nts JOB#: [id number] / [id number] PORTER Peterson MD MTDD
[2017-04-05] MEDS ORDERED: ESTRADIOL 0.01% VAGINAL CREAM 42.5GM TUBE. VG SCH (09:00)
== END 2017-04-03 13:30 | DRG 481 ==
LOC: 4 NORTH 21:27
PROVIDERS: ADMIT Internal Medicine; ATTEND Internal Medicine
PROC: 0QS706Z Reposition Left Upper Femur with Intramedullary Internal Fixation Device, Open Approach (ICD-10-PCS; principal; 2017-03-30 13:45)
PROC: 30233N1 Transfusion of Nonautologous Red Blood Cells into Peripheral Vein, Percutaneous Approach (ICD-10-PCS; 2017-04-02)
DX: S72.142A Displaced intertrochanteric fracture of left femur, initial encounter for closed fracture (principal); E44.1 Mild protein-calorie malnutrition; Z96.641 Presence of right artificial hip joint; E03.9 Hypothyroidism, unspecified; F03.90 Unspecified dementia, unspecified severity, without behavioral disturbance, psychotic disturbance, mood disturbance, and anxiety; F32.9 Major depressive disorder, single episode, unspecified; H91.90 Unspecified hearing loss, unspecified ear; I10 Essential (primary) hypertension; D64.9 Anemia, unspecified; T40.605A Adverse effect of unspecified narcotics, initial encounter; K59.03 Drug induced constipation; W18.39XA Other fall on same level, initial encounter; Y93.89 Activity, other specified; Y92.89 Other specified places as the place of occurrence of the external cause; Y99.8 Other external cause status; Z88.0 Allergy status to penicillin; Z68.25 Body mass index [BMI] 25.0-25.9, adult
CPT/HCPCS: 36415; 71010; 76000; 80053; 81001; 85014; 85018; 85027; 85610; 86850; 86900; 86901; 86920; 87641; 94250; 94640; C1713; C1887; G0238; J1100; J2001; J2270; J2405; J2704; J3010; J3490; J7030; J7120; P9016; S0028; 92610; 97110; 97530; 97535